=== PATIENT | female | born 1985 | race Caucasian/White ===

== ENCOUNTER 2021-01-17 13:51 | Emergency (ER) | payer BC ==
[2021-01-17 14:03] VITALS: BP 132/85
--- NOTE | 2021-01-17 14:06 | ED Physician Documentation ---
PD HPI WOUND RECHECK - Stated complaint Stated Complaint: RASH - Chief complaint Chief Complaint: Wound - Histroy obtained from History obtained from: Patient - Additional information Additional information: Has a small rash on the left buttock. It started yesterday. Feels like a burn but there was no activity or burn recollected. Review of Systems Constitutional: denies: Fever, Chills Nose: reports: Reviewed and negative Throat: reports: Reviewed and negative Cardiac: reports: Reviewed and negative Respiratory: reports: Reviewed and negative PD PAST MEDICAL HISTORY - Allergies Allergies/Adverse Reactions: Allergies Allergy/AdvReac Type Severity Reaction Status Date / Time Penicillins Allergy Hives Verified 01/17/21 13:59 Sulfa (Sulfonamide Allergy Anaphylaxis Verified 01/17/21 13:59 Antibiotics) PD ED PE NORMAL - Vitals Vital signs reviewed: Yes - General General: Alert and oriented X 3, No acute distress - Derm Derm: Other (She has a 1 cm denuded area on the left lower lateral buttock without cellulitis. It looks most like a abrasion or small burn. Deroofed bullous lesion is also possible but it is singular.) - Neuro Neuro: Alert and oriented X 3, Normal speech Results - Vitals Vitals: Vital Signs - 24 hr 01/17/21 13:59 Temperature 37.1 C Heart Rate 71 Respiratory 20 Rate Blood Pressure 132/85 H O2 Saturation 95 Oxygen O2 Source Room air PD MEDICAL DECISION MAKING - ED course ED course: Not sure what this lesion represents but it does not look dangerous. Does not look like shingles. Close watchful waiting and return for changes or worsening was advised. Departure - Departure Disposition: 01 Home, Self Care Clinical Impression: Rash and nonspecific skin eruption Condition: Good Record reviewed to determine appropriate education?: Yes Comments: As discussed, it looks most like an abrasion or small burn, but obviously there is no explanation for that. Do not think it is dangerous though, keep an eye on it if it worsens or he develop other new symptoms please return for reevaluation. In the meantime I think soap and water is fine and just a bandage with bacitracin ointment to keep it moist which is available [id number].
== END 2021-01-17 14:08 | disposition home or self-care (01) ==
LOC: ED 13:51
DX: R21 Rash and other nonspecific skin eruption (principal)
CPT/HCPCS: 99281; 99282

== ENCOUNTER 2022-12-26 20:56 | Emergency (ER) | payer BC ==
[2022-12-26 21:12] VITALS: BP 148/86
--- NOTE | 2022-12-26 22:21 | ED Physician Documentation ---
PD HPI HEADACHE - Stated complaint Stated Complaint: HEADACHES - Chief complaint Chief Complaint: Neuro - History obtained from History obtained from: Patient - Additional information Additional information: The patient comes to the emergency department with chief complaint of left temporal pains for the last 3 days. She states that she notices that they just come on randomly and that she will get them multiple times an hour. She states is a sharp pulse of pain that sometimes makes her wince. It only lasts for a second or 2 and then resolves. The patient states that there are no associated symptoms. No neurologic deficits of any kind. No nausea or vomiting. No dizziness. The patient denies any enduring pain in her adventism when she is not having the pulse pain. She has not had any visual changes. No fevers or chills. She has not been ill recently. This has never happened before. She states she is otherwise fairly healthy. The patient states she has come to the emergency department tonight because they called the nurse hotline to see what they should do, as Advil did not seem to be working, and the nurse told them to "get to the emergency department within an hour". Review of Systems Constitutional: reports: Reviewed and negative Eyes: reports: Reviewed and negative Ears: reports: Reviewed and negative Nose: reports: Reviewed and negative Throat: reports: Reviewed and negative Cardiac: reports: Reviewed and negative Respiratory: reports: Reviewed and negative GI: reports: Reviewed and negative : reports: Reviewed and negative Skin: reports: Reviewed and negative Musculoskeletal: reports: Reviewed and negative Neurologic: reports: Reviewed and negative Psychiatric: reports: Reviewed and negative Endocrine: reports: Reviewed and negative Immunocompromised: reports: Reviewed and negative PD PAST MEDICAL HISTORY - Past Surgical History Past Surgical History: No - Present Medications Home Medications: Ambulatory Orders Medication Instructions Recorded Confirmed No Known Home Medications 12/26/22 12/26/22 - Allergies Allergies/Adverse Reactions: Allergies Allergy/AdvReac Type Severity Reaction Status Date / Time Penicillins Allergy Hives Verified 12/26/22 21:11 Sulfa (Sulfonamide Allergy Anaphylaxis Verified 12/26/22 21:11 Antibiotics) - Social History Does the pt smoke?: No Smoking Status: Never smoker Does the pt drink ETOH?: No Does the pt have substance abuse?: No - Immunizations Immunizations are current?: Yes PD ED PE NORMAL - Vitals Vital signs reviewed: Yes - General General: Alert and oriented X 3, No acute distress, Well developed/nourished - HEENT HEENT: Atraumatic, PERRL, EOMI, Moist mucous membranes, Other (No L temporal artery firmness or tenderness.) - Neck Neck: Supple, no meningeal sign - Respiratory Respiratory: No respiratory distress - Derm Derm: Normal color, Warm and dry, No rash - Extremities Extremities: No deformity - Neuro Neuro: Alert and oriented X 3 - Psych Psych: Normal mood, Normal affect Results - Vitals Vitals: Vital Signs - 24 hr 12/26/22 21:06 Temperature 36.6 C Heart Rate 69 Respiratory 16 Rate Blood Pressure 148/86 H O2 Saturation 98 Oxygen O2 Source Room air PD Medical Decision Making - ED course Complexity details: considered differential, d/w patient, d/w family ED course: The patient was very well-appearing, and was describing a very focused, strong, intermittent sensation that was very localized. She did not have any other associated symptoms whatsoever, and was otherwise well. She had not had any trauma. I did not feel that the patient had an intracranial process going on but rather, seemed to have hyperactivity of one of the branches of her trigeminal nerve. This had been a fairly recent development and it was unclear whether this was something that would become chronic or blow over on its own. I discussed with the patient that I do not think CT scan will be helpful, normal blood work. I have offered the patient a short course of gabapentin and prednisone, but she would prefer to just wait and see how things go. I have discussed with her that she will need to follow-up with her primary care physician, should the symptoms continue for more than a week. We discussed that any neurologic symptoms develop, the patient should return to the emergency department immediately for reevaluation. Departure - Departure Disposition: 01 Home, Self Care Clinical Impression: Neuralgia and neuritis Condition: Stable Instructions: ED Cephalgia Unspecified Comments: Your symptoms are most consistent with nerve pain coming from one of the facial nerve branches that runs through your adventism. The highly focused pain that comes in pulses is indicative of a peripheral nerve source, meaning that it is not coming from the brain itself. In general, these sorts of nerve pains often blow over on their own, but if they do become chronic, there are various potential treatments you can discuss with your doctor. At this time, we have discussed prescription medication for symptom management, and you would like to hold off on this for now. Please follow-up with your primary doctor if your symptoms continue for more than the next week. Discharge Date/Time: 12/26/22 22:28
== END 2022-12-26 22:28 | disposition home or self-care (01) ==
LOC: ED 20:56
DX: M79.2 Neuralgia and neuritis, unspecified (principal)
CPT/HCPCS: 99281; 99283

== ENCOUNTER 2023-08-18 18:59 | Outpatient (CLI) | payer BC ==
--- NOTE | 2023-08-19 12:09 | Ultrasound Report ---
PROCEDURE: OB Detailed Eval INDICATIONS: SUPERVISION OF OUTSIDE/PRIOR DATING DATA: Last menstrual period (LMP): 03/05/2023. LMP-based estimated date of delivery (ENMANUEL): 12/10/2023. First dating scan (date and location): 05/04/2023. Estimated date of delivery (ENMANUEL) from first dating scan: 11/24/2023. The below data below was generated using the ultrasound ENMANUEL of 11/24/2023 TECHNIQUE: Real-time scanning was performed of the fetus, with image documentation and biometric measurements. Endovaginal scanning: Not performed. COMPARISON: None. FINDINGS: General: A single living intrauterine gestation is present. Presentation: Variable Placenta: Placental position is fundal, without previa. Amniotic fluid index: 16.9 cm, within normal limits for gestational age. Largest pocket 5.5 cm heart rate: 141 beats per minute. Maternal cervical canal: 4.4 cm long; normal length is 2.5 cm or more. biometrics: Biparietal diameter: 6.4 cm, 26 weeks 0 days Head circumference: 24.1 cm, 26 weeks 1 day Abdominal circumference: 22 cm, 26 weeks 3 days Femur length: 4.8 cm, 26 weeks 0 days Estimated gestational age from initial scan: 26 weeks 0 days Composite gestational age from present scan: 26 wakes 1 day Estimated weight and percentile: 909 g, 49th percentile. Measurement variability in biometric dating: +/- 10 days from 12-20 weeks gestation, +/- 2 weeks from 20-30 weeks gestation, +/- 3 weeks at 30 weeks gestation or later. Anatomic survey: Neuro: Ventricles are normal at less than 10 mm. Cisterna magna is normal at 3-11 mm. Cerebellum i s normal in size and morphology. The gestational age, somewhat suboptimally visualized. Nuchal skin fold: Normal at less than 6 mm between 14 and 20 weeks gestational age. Face: Nose and lips, facial profile are normal. Spine: No evidence for spina bifida. Heart: 4-chambered heart is present, with normal ventricular outflow tracts. Diaphragm: Diaphragm is intact. Stomach: Left-sided stomach is present. Kidneys: No hydronephrosis. Normal is less than 5 mm in 2nd trimester, less than 7 mm in 3rd trimester. Cord: 3 vessel cord has orthotopic insertion. Bladder: Normal in size. Extremities: All 4 extremities are visualized. Left hand is not identified. IMPRESSION: 1. Mars living intrauterine at 26 weeks 1 day based on today's ultrasound. Fetus is in the 49th percentile for weight. 2. Normal placenta and amniotic fluid. 3. Left hand is not identified due to lie. Neural structures are suboptimally visualized due to late gestational age. Grossly normal-appearing. Otherwise normal anatomic survey. No gross abn ormality. Reviewed by: Orlin Renee MD on 08/19/2023 12:08 PM PDT Approved by: Orlin Renee MD on 08/19/2023 12:08 PM PDT Station ID: [id number]
== END 2023-08-18 19:00 | disposition home or self-care (01) ==
LOC: DI 18:59
PROVIDERS: ATTEND Nurse Practitioner
DX: Z36.89 Encounter for other specified antenatal screening (principal); O09.522 Supervision of elderly multigravida, second trimester; Z3A.26 26 weeks gestation of pregnancy

== ENCOUNTER 2023-09-07 09:25 | Outpatient (CLI) | payer BC ==
[2023-09-07 10:35] LABS: HCT - HEMATOCRIT 33.8 % (37.0-47.0); HGB - HEMOGLOBIN 11.3 g/dL (12.0-16.0); MEAN CORPUSCULAR HEMOGLOBIN 29.7 pg (27.0-31.0); MEAN CORPUSCULAR HGB CONC 33.4 g/dL (32.0-36.0); MEAN CORPUSCULAR VOLUME 88.9 fL (81.0-99.0); MEAN PLATELET VOLUME 11.1 fL (7.9-10.8); RED BLOOD COUNT 3.8 10^6/uL (4.20-5.40); RED CELL DISTRIBUTION WIDTH 13.8 % (12.0-15.0); WHITE BLOOD COUNT 8.7 x10^3/uL (4.8-10.8)
[2023-09-07 10:55] LABS: CREATININE 0.6 mg/dL (0.6-1.3)
[2023-09-07 11:05] LABS: THYROID STIMULATING HORMONE 1.61 uIU/mL (0.34-5.60)
== END 2023-09-07 09:26 | disposition home or self-care (01) ==
LOC: LAB 09:25
PROVIDERS: ATTEND Nurse Practitioner
DX: O09.529 Supervision of elderly multigravida, unspecified trimester (principal); Z36.89 Encounter for other specified antenatal screening
CPT/HCPCS: 36415; 82565; 82950; 84443; 84450; 85027; 86787; 86850

== ENCOUNTER 2023-10-19 16:26 | Outpatient (CLI) | payer BC ==
--- NOTE | 2023-10-20 09:06 | Ultrasound Report ---
PROCEDURE: OB F/U or Repeat INDICATIONS: SUPERVISION OF OUTSIDE/PRIOR DATING DATA: Last menstrual period (LMP): 03/05/2023. LMP-based estimated date of delivery (ENMANUEL): 12/10/2023. First dating scan (date and location): 05/04/2023. Estimated date of delivery (ENMANUEL) from first dating scan: 11/24/2023. The below data below was generated using the ultrasound ENMANUEL of 11/24/2023 TECHNIQUE: Real-time scanning was performed of the fetus, with image documentation and biometric measurements. Endovaginal scanning: Not performed. COMPARISON: OB ultrasound 08/18/2023 FINDINGS: General: A single living intrauterine gestation is present. Presentation: Vertex Placenta: Placental position is fundal, without previa. Amniotic fluid index: 23.7 cm, upper limits of normal for gestational age. heart rate: 126 beats per minute. Maternal cervical canal: 5.3 cm long; normal length is 2.5 cm or more. biometrics: Biparietal diameter: 9.1 cm, 36 weeks 5 days, 93% Head circumference: 34.1 cm, 39 weeks 2 days, 98% Abdominal circumference: 32.6 cm, 36 weeks 4 days, 93% Femur length: 6.8 cm, 35 weeks 1 day, 50% Estimated gestational age from initial scan: 34 weeks 6 days Composite gestational age from present scan: 37 weeks 0 days Estimated weight and percentile: 2957 g, 89th percentile Measurement variability in biometric dating: +/- 10 days from 12-20 weeks gestation, +/- 2 weeks from 20-30 weeks gestation, +/- 3 weeks at 30 weeks gestation or more. Other: Left hand is within normal limits.. IMPRESSION: 1.Single live intrauterine consistent with 37 weeks and 0 days. 2.Amniotic fluid index at 23.7 cm, upper limits of normal. Recommend follow-up ultrasound. 3.Estimated weight is at the 89th percentile. Reviewed by: Jet Dominguez MD on 10/20/2023 9:05 AM PST Approved by: Jet Dominguez MD on 10/20/2023 9:05 AM PST Station ID: [id number]
== END 2023-10-19 16:27 | disposition home or self-care (01) ==
LOC: DI 16:26
PROVIDERS: ATTEND Obstetrics & Gynecology
DX: O09.523 Supervision of elderly multigravida, third trimester (principal); Z3A.37 37 weeks gestation of pregnancy

== ENCOUNTER 2023-10-26 08:00 | Outpatient (CLI) | payer BC | END 2023-10-26 23:59 | disposition home or self-care (01) | LOC: LAB.WC 08:00 | PROVIDERS: ATTEND Obstetrics & Gynecology | DX: Z36.85 Encounter for antenatal screening for Streptococcus B (principal) | CPT/HCPCS: 87797 ==

== ENCOUNTER 2023-11-04 15:00 | Inpatient (IN) | payer BC ==
[2023-11-04 15:45] LABS: RUPTURE OF MEMBRANES PLUS NEGATIVE (NEGATIVE)
--- NOTE | 2023-11-04 16:36 | PROVIDER PROGRESS NOTE ---
- HPI Chief Complaint: Labor Check Current : Current EDU 11/24/23 Gestation 37 Weeks and 1 Days 5 Para 3 Vital Signs Temperature 98.2 F 11/04/23 15:22 Heart Rate 69 11/04/23 15:22 Respiratory Rate 14 11/04/23 15:22 Blood Pressure 125/74 11/04/23 15:22 Temperature 98.2 F 11/04/23 15:22 Heart Rate 69 11/04/23 15:22 Respiratory Rate 14 11/04/23 15:22 Blood Pressure 125/74 11/04/23 15:22 O2 Saturation If not protocol: Oxygen Flow, liters/minute - Exam VSS NAD Conjunctiva pink, pale sclera +S1, S2, CTAB, no increased work of breathing Abd soft, NT, ND, visibly gravid at term, leopolds 6#8 Andrews: cephalic, head not engaged, some tenderness at incision site EFM: 130mod kathryn + A cells no D cells, reactive [place]: Q4-5 Cx: FT/50/hi/ant/soft. Ext: neg CCE - Procedures OB Procedure Performed: NST Diagnosis/Indication for NST: Other (early labor in setting of prior C/S.) NST Procedure: NST Procedure Start Date 11/04/23 Start Time 15:11 Stop Time 15:41 Vibroacoustic Stimulation Used No Patient States Movement Yes 130 mod kathryn + A cells no D cells, reactive Service Date of procedure: 11/04/23 Procedure Details: 130 mod kathryn + A cells no D cells reactive - Plan Plan: ANL: O+/abneg/RI/RPRNR/HepBneg/HIVneg/GCCTnegneg/GBSneg ANC c/b: C/S X3 - FOR RCS hemorrhage & blood transfusion with first - CARE WITH POST Hx of depression, current depression/anxiety - her plan is: if it gets really bad to ask for an SSRI. Her 3 kids (12, 11, 8) and FOB plan to be helpful . She is permanent here, though is [id number] so does have some friends who rotate around. AMA - FAS normal at 26 wk at . repeat scan ordered for growthat 32 weeks - doing 6 oct @ 4:30- 89th%ile bmi 33 - labs normal Pre- Weight: 185 - per pt. PMH: denies PSH: denies POB: 3 prior C/S PGYN: no h/o abnormal pap no h/o STDs no h/o problems with ovaries or uterus pt with regular monthly periods, when not Meds: PNV, tylenol sometimes All: PCS & Sulfa Soc: neg x3, lives with FOB TELMA and 3 kids Plan: 38yo @ 37&1 possibly in early labor possibly dehydrated from vomitting x1 today, not eating or drinking anything all day possible UTI ROM testing was negative does not appear to have ruptured her membraines does report pain at incision site intermittent will IV hydrate and see if that resolves CTX also checking for UTI re-checking cx in 2h if all symptoms resolve and contractions are resolved with IV hydration, will D/C home with precautions. if symptoms persist we will move to C/S treat UTI if present.
[2023-11-04] MEDS ORDERED: LACTATED RINGERS 1,000 ML IV ONE ×2 (16:51→22:39)
[2023-11-04] MEDS ORDERED: GENTAMICIN 320 MG in SODIUM CHLORIDE 0.9% 100ML 100 ML IV ONE (18:35)
[2023-11-04] MEDS ORDERED: ACETAMINOPHEN 500 MG TABLET PO ONE (18:35)
[2023-11-04] MEDS ORDERED: CITRIC ACID/SODIUM CITRATE 15 ML UDC PO ONE (18:35)
[2023-11-04] MEDS ORDERED: CLINDAMYCIN 900 MG/50 ML 900 MG/50 ML BAG IV ONE (18:35)
[2023-11-04] MEDS ORDERED: LACTATED RINGERS 1,000 ML ONE (18:38)
[2023-11-04 18:43] LABS: BASOPHILS % (AUTO) 0.2 %; EOSINOPHILS # (AUTO) 0.1 10^3/uL (0.0-0.7); EOSINOPHILS % (AUTO) 0.7 %; HCT - HEMATOCRIT 38.8 % (37.0-47.0); HGB - HEMOGLOBIN 12.8 g/dL (12.0-16.0); LYMPHOCYTES # (AUTO) 1.8 10^3/uL (1.5-3.5); LYMPHOCYTES % (AUTO) 18.8 %; MEAN CORPUSCULAR HEMOGLOBIN 28.8 pg (27.0-31.0); MEAN CORPUSCULAR VOLUME 87.4 fL (81.0-99.0); MEAN PLATELET VOLUME 12.1 fL (7.9-10.8); MONOCYTES # (AUTO) 0.5 10^3/uL (0.0-1.0); MONOCYTES % (AUTO) 4.8 %; NEUTROPHILS # (AUTO) 7.3 10^3/uL (1.5-6.6); NEUTROPHILS % (AUTO) 75.2 %; PLT - PLATELET COUNT 231 10^3/uL (130-450); RED BLOOD COUNT 4.44 10^6/uL (4.20-5.40); RED CELL DISTRIBUTION WIDTH 14.6 % (12.0-15.0); WHITE BLOOD COUNT 9.7 x10^3/uL (4.8-10.8)
--- NOTE | 2023-11-04 18:54 | HISTORY & PHYSICAL EXAMINATION ---
Admit History - Visit Reason Visit Reason: Contractions - : 5 Parity: 3 Premature: 0 Ectopic: 0 : 1 Care: positive: [facility] Risk/History: positive: Previous Complications This : positive: None Smoking Status: Never smoker - Mother's Labs Mother's Blood Type: positive: O Mother's RH: positive: Positive GBS: positive: Group B Step Negative Rubella Status: positive: Immune - Other Maternal History Other Maternal History: ANL: O+/abneg/RI/RPRNR/HepBneg/HIVneg/GCCTnegneg/GBSneg ANC c/b: C/S X3 - FOR RCS hemorrhage & blood transfusion with first - CARE WITH POST Hx of depression, current depression/anxiety - her plan is: if it gets really bad to ask for an SSRI. Her 3 kids (12, 11, 8) and FOB plan to be helpful . She is permanent here, though is [id number] so does have some friends who rotate around. AMA - FAS normal at 26 wk at . repeat scan ordered for growthat 32 weeks - doing 6 oct @ 4:30- 89th%ile bmi 33 - labs normal Pre- Weight: 185 - per pt. PMH: denies PSH: denies POB: 3 prior C/S PGYN: no h/o abnormal pap no h/o STDs no h/o problems with ovaries or uterus pt with regular monthly periods, when not Meds: PNV, tylenol sometimes All: PCS & Sulfa Soc: neg x3, lives with FOB TELMA and 3 kids Plan: 38yo @ 37&1 possibly in early labor Ctx did not improve after IV hydration, indeed they palpate more strongly ROM testing was negative does not appear to have ruptured her membraines does report pain at incision site intermittent FWB: Cat 1, cEFM Will proceed to OR for early labor in setting of 3 prior C/S at term RBA discussed informed consent obtained she is PCN / sulfa allergic -- will prophy with gent and clinda proceed to OR when available. anticipate 1-2h as pt x2 are stable and there is a gen surg emergency case right now. - HPI Current EDU 11/24/23 Gestation 37 Weeks and 1 Days 5 Para 3 Vital Signs Temperature 98.2 F 12/22/23 15:22 Heart Rate 69 11/04/23 15:22 Respiratory Rate 14 11/04/23 15:22 Blood Pressure 125/74 11/04/23 15:22 Temperature 98.1 F 11/04/23 17:13 Heart Rate 75 11/04/23 17:13 Respiratory Rate 18 11/04/23 17:13 Blood Pressure 124/77 11/04/23 17:13 O2 Saturation 97 11/04/23 17:13 If not protocol: Oxygen Flow, liters/minute - NST Procedure NST Procedure Start Date 11/04/23 Start Time 15:11 Stop Time 15:41 Vibroacoustic Stimulation Used No Patient States Movement Yes Meds/Allgy - Home Medications Home Medications: Ambulatory Orders Medication Instructions Recorded Confirmed No Known Home Medications 12/26/22 12/26/22 - Allergies Allergies/Adverse Reactions: Allergies Allergy/AdvReac Type Severity Reaction Status Date / Time Penicillins Allergy Hives Verified 12/26/22 21:11 Sulfa (Sulfonamide Allergy Anaphylaxis Verified 12/26/22 21:11 Antibiotics) Review of Systems - Other Findings Other Findings: Denies: F/C/N/V/CP/SOB Denies: dizziness, weakness, lightheadedness, difficulty with ambulation, palpitations Denies: SUN / visual changes Physical - Abdominal Exam Vital Signs: Temp Pulse Resp BP Pulse Ox O2 Flow Rate 98.1 F 75 18 124/77 97 11/04/23 17:13 11/04/23 17:13 11/04/23 17:13 11/04/23 17:13 11/04/23 17:13 Contraction Frequency (min/apart): 5 Contraction Intensity: positive: Moderate Uterine Resting Tone: positive: Soft - Monitoring Heart Rate Baseline: 130 Strip Review: positive: Category I - Presentation Presentation: positive: Vertex - Vaginal Exam Membranes: positive: Membranes intact Dilation (in cm): 1 Effacement (%): 50 Station: positive: -3 Cervical Position: positive: Anterior - Speculum Exam Speculum Exam Performed: positive: No Plan for Labor - Plan For Labor I expect patient to be DC'd or transferred within 96 hours.: No Plan for Labor: Admit, proceed to OR see plan noted earlier in this note.
[2023-11-04] MEDS: LACTATED RINGERS 1,000 ML IV SCH (18:56)
[2023-11-04 19:56] LABS: BILIRUBIN,URINE NEGATIVE (NEGATIVE); GLUCOSE, URINE (UA) NEGATIVE (NEGATIVE); KETONES,URINE (UA) >=80 mg/dL (NEGATIVE); LEUKOCYTE ESTERASE, URINE NEGATIVE (NEGATIVE); NITRITE,URINE NEGATIVE (NEGATIVE); OCCULT BLOOD,URINE NEGATIVE (NEGATIVE); PROTEIN,URINE NEGATIVE (NEGATIVE); UROBILINOGEN,URINE 0.2 (NORMAL) E.U./dL (NORMAL)
[2023-11-04 20:04] LABS: CLARITY,URINE CLEAR (CLEAR)
[2023-11-04] MEDS ORDERED: OXYTOCIN/SODIUM CHLORIDE 500 ML IV ONE (20:23)
[2023-11-04] MEDS ORDERED: fentaNYL 100 MCG/2 ML VIAL ONE (20:23)
[2023-11-04] MEDS ORDERED: MORPHINE PF 5 MG/10 ML VIAL ONE (20:23)
[2023-11-04] MEDS ORDERED: PHENYLEPHRINE HCL 0.5 MG/5 ML AMPULE ONE ×2 (20:25→21:35)
[2023-11-04] MEDS ORDERED: HYDROmorphone 0.5 MG/0.5 ML SYRINGE IVP PRN (20:33)
[2023-11-04] MEDS ORDERED: fentaNYL 100 MCG/2 ML VIAL IVP PRN (20:33)
[2023-11-04] MEDS ORDERED: ONDANSETRON 4 MG/2 ML VIAL IVP PRN ×2 (20:33→22:42)
[2023-11-04] MEDS ORDERED: ATROPINE ABBOJECT 1 MG/10 ML SYRINGE IVP PRN (20:33)
[2023-11-04] MEDS ORDERED: MORPHINE 2 MG/ML CARPUJECT IVP PRN (20:33)
[2023-11-04] MEDS ORDERED: NALOXONE 0.4 MG/ML VIAL IVP PRN ×3 (20:33→22:42)
--- NOTE | 2023-11-04 20:33 | ANESTHESIA ---
Pre-Anesthesia VS, & Labs - Diagnosis Early labor, previous c/s - Procedure repeat c/s Vital Signs: Temp Pulse Resp BP Pulse Ox O2 Flow Rate 36.8 C 74 16 129/82 H 97 11/04/23 19:36 11/04/23 19:36 11/04/23 19:36 11/04/23 19:36 11/04/23 17:13 Height: 5 ft 1 in Weight (kg): 88.451 kg Body Mass Index: 36.8 BMI Classification: Obese - NPO >8 hours - Is Patient ?: Yes - Lab Results Current Lab Results: Laboratory Tests 11/04/23 19:52: Blood Type Recheck O POSITIVE 11/04/23 18:54: Blood Type O POSITIVE, Antibody Screen NEGATIVE 11/04/23 16:45: WBC 9.7, RBC 4.44, Hgb 12.8, Hct 38.8, MCV 87.4, MCH 28.8, MCHC 33.0, RDW 14.6, Plt Count 231, MPV 12.1 H, Neut # (Auto) 7.3 H, Lymph # (Auto) 1.8, Eaton # (Auto) 0.5, Eos # (Auto) 0.1, Baso # (Auto) 0.0, Absolute Nucleated RBC 0.00, Nucleated RBC % 0.0 Lab results reviewed: Yes Fish Bones: 11/04/23 16:45 Home Medications and Allergies Active Medications Lactated Ringer's (Lr) 1,000 mls @ 125 mls/hr IV .Q8H RALPH Last Admin: 11/04/23 18:56 Dose: 125 mls/hr No Known Home Medications 12/26/22 Allergies/Adverse Reactions: Allergies Allergy/AdvReac Type Severity Reaction Status Date / Time Penicillins Allergy Hives Verified 12/26/22 21:11 Sulfa (Sulfonamide Allergy Anaphylaxis Verified 12/26/22 21:11 Antibiotics) Anes History & Medical History - Anesthetic History Anesthesia Complications: reports: No previous complications - Medical History Cardiovascular: reports: None Pulmonary: reports: None Gastrointestinal: reports: None Urinary: reports: None Neuro: reports: None Musculoskeletal: reports: None Endocrine/Autoimmune: reports: None Blood Disorders: reports: None Skin: reports: None Smoking Status: Never smoker Psychosocial: reports: No issues indicated History of Cancer?: No - Surgical History General: reports: Appendectomy - Obstetrical History : 5 Parity: 3 Events: reports: Previous Complications: reports: None Exam General: Alert, Oriented x3, Cooperative, No acute distress Dental: WNL Mouth Openin Fingerbreadth Neck Mobility: Normal Mallampati classification: II Thyromental Distance: 4-6 cm Mental/Cognitive Status: Alert/Oriented X3, Normal for patient Plan Anesthesia Type: Spinal (with ITN) Consent for Procedure(s) Verified and Reviewed: Yes Code Status: Attempt Resuscitation ASA classification: 2-Mild systemic disease Is this case an emergency?: No
[2023-11-04] MEDS ORDERED: MORPHINE PF 5 MG/10 ML VIAL IT ONE (20:56)
[2023-11-04] MEDS ORDERED: fentaNYL 100 MCG/2 ML VIAL IT ONE (20:56)
[2023-11-04] MEDS ORDERED: LACTATED RINGERS 1,000 ML IV SCH ×2 (21:00→23:00)
[2023-11-04] MEDS ORDERED: ONDANSETRON 4 MG/2 ML VIAL ONE (21:26)
[2023-11-04] MEDS ORDERED: METHYLERGONOVINE 0.2 MG/ML VIAL ONE (21:35)
[2023-11-04] MEDS ORDERED: miSOPROStoL 200 MCG TABLET ONE (21:35)
[2023-11-04] MEDS ORDERED: CARBOPROST TROMETHAMINE 250 MCG/ML AMP IM ONE (21:35)
[2023-11-04] MEDS ORDERED: KETOROLAC 30 MG/ML VIAL ONE (21:59)
[2023-11-04] MEDS ORDERED: LABETALOL 20 MG/4 ML SYRINGE IVP PRN ×3 (22:31)
[2023-11-04] MEDS ORDERED: OXYTOCIN/SODIUM CHLORIDE 500 ML IV PRN (22:31)
[2023-11-04] MEDS ORDERED: hydrALAZINE INJ 20 MG/ML VIAL IVP PRN ×2 (22:31)
[2023-11-04] MEDS ORDERED: CARBOPROST TROMETHAMINE 250 MCG/ML AMP IM PRN (22:31)
[2023-11-04] MEDS ORDERED: METHYLERGONOVINE 0.2 MG/ML VIAL IM PRN (22:31)
[2023-11-04] MEDS ORDERED: TRANEXAMIC ACID IN NACL 1,000 MG/100 ML BAG IV PRN (22:31)
[2023-11-04] MEDS ORDERED: NIFEdipine 10 MG CAPSULE PO PRN (22:31)
[2023-11-04] MEDS ORDERED: CALCIUM CARBONATE CHEW 500 MG TABLET PO PRN (22:31)
[2023-11-04] MEDS ORDERED: diphenhydrAMINE INJ 50 MG/ML VIAL IVP PRN (22:42)
[2023-11-04] MEDS ORDERED: NALBUPHINE 10 MG/ML AMP IVP PRN (22:42)
--- NOTE | 2023-11-04 22:43 | OPERATIVE REPORT ---
Operative Report - General Admit Date: 11/04/23 - Other Other Information/Narrative: OPERATIVE NOTE Pre-operative diagnosis: 1. IUP @ 37&1 2. labor 3. h/o C/S x3 Procedure: RLTCS via pfannensteil skin incision Post-operative diagnosis: CIRO Surgeon: Brittany Torch Brazer: Thiago Anesthesia: Spinal Findings: viable female , Apgars , born at 2131 normal uterus normal tubes & ovaries bilaterally no notable adhesions Complications: None apparent EBL: 600cc UOP: 50cc IVF: 1L Procedure in detail: After risks benefits and alternatives, as well as indication for procedure and anticipated post-operative recovery course, were discussed with the patient informed consent was obtained and patient was taken to the operating theater where spinal anesthesia was administered without difficulty. [place] catheter was inserted in normal sterile fashion. Pt was prepared and draped in normal sterile fashion. Anesthesia was tested and found to be adequate. Prior to skin incision pt received recommended antibiotics, surgical time out was performed, and all persons in the operating theater participated in time out and agreed. Pfannensteil skin incision made with scalpel. Carried down to level of fasia. Fascia incised and extended. Anterior aspect of rectus sheath dissected off of rectus muscle without difficulty. Peritoneum entered without difficulty and surgical field extended with gentle lateral traction. Lower uterine segment identified, well developed. Uterine incision made with scalpel, uterus entered bluntly and incision extended bluntly. Surgeons right hand entered into lower uterine segment, presenting part elevated to level of incision and delivered atraumatically. Cord clamped and cut x2, did not delay cord clamp 2'2 needing to hand baby to box maker wood. baby handed to awaiting box maker wood, apgars as noted above. Placenta delivered manually. Uterus exteriorized and wrapped in moist lap. Uterine cavity cleaned with moist lap and found to be free of membranes or debris. Uterine incision closed with 0 vicryl, running suture, and subsequently imbricated with the same suture. Incision inspected, hemostatic. Gutters cleaned. Uterus returned to abdominal cavity. All inspected, hemostatic. Peritoneum reapproximated without suture. Muscles inspected, fascia inspected, hemostatic. Fascia closed with 0 looped PDS in running fashion. Subcutaneous tissue irrigated, and then closed with 2.0 vicryl in running fashion. Skin incision closed with subcuticular sutures with 4.0 vicryl. Pt and tolerated procedure well. All counts correct. Pt to PACU in stable condition.
--- NOTE | 2023-11-04 22:51 | ANESTHESIA POST OP EVALUATION ---
Anesthesia Post Eval - Post Anesthesia Eval Vitals: Last Vital Signs Temp 36.9 C 11/04/23 22:34 Pulse 73 11/04/23 22:34 Resp 16 11/04/23 22:34 BP 106/64 11/04/23 22:34 Pulse Ox 97 11/04/23 22:34 O2 Flow Rate CV Function Including HR & BP: Stable Pain Control: Satisfactory Nausea & Vomiting: Negative Mental Status: Baseline Respiratory Status: Airway Patent Hydration Status: Satisfactory Anesthesia Complications: None
[2023-11-04] MEDS ORDERED: ACETAMINOPHEN 500 MG TABLET PO SCH (23:00)
[2023-11-05] MEDS: LACTATED RINGERS 1,000 ML IV SCH ×2 (01:57→10:04)
[2023-11-05] MEDS: KETOROLAC 30 MG/ML VIAL IVP SCH ×3 (04:04→16:35)
[2023-11-05 06:04] LABS: HCT - HEMATOCRIT 33.2 % (37.0-47.0); HGB - HEMOGLOBIN 11.2 g/dL (12.0-16.0); MEAN CORPUSCULAR HEMOGLOBIN 29.6 pg (27.0-31.0); MEAN CORPUSCULAR HGB CONC 33.7 g/dL (32.0-36.0); MEAN CORPUSCULAR VOLUME 87.8 fL (81.0-99.0); MEAN PLATELET VOLUME 11.3 fL (7.9-10.8); RED BLOOD COUNT 3.78 10^6/uL (4.20-5.40); RED CELL DISTRIBUTION WIDTH 14.5 % (12.0-15.0)
[2023-11-05] MEDS: DOCUSATE SODIUM 100 MG CAPSULE PO SCH ×2 (08:27→21:29)
[2023-11-05] MEDS: SIMETHICONE CHEW 80 MG TABLET PO PRN (08:28)
--- NOTE | 2023-11-05 10:55 | PROVIDER PROGRESS NOTE ---
Subjective - Prog Note Date Prog Note Date: 11/05/23 Prog Note Time: 10:55 - Subjective Pt reports feeling: Improved Subjective: Pt well, lochia appropriate, + amb, due to void, + jace PO, no flatus yet Feeding going well -- breast Bonding with baby Denies: F/C/N/V/CP/SOB Denies: dizziness, weakness, lightheadedness, difficulty with ambulation, palpitations Denies: SUN / visual changes Objective - Vital Signs/Intake & Output Vital Signs: Vital Signs x48h Temp Pulse Resp BP Pulse Ox 11/05/23 10:00 71 20 97 11/05/23 09:18 60 18 97 11/05/23 08:19 95/57 L 11/05/23 07:51 98.3 F 60 16 88/52 L 97 11/05/23 06:51 16 96 11/05/23 05:40 14 97 11/05/23 04:00 16 97 11/05/23 03:05 98 11/05/23 03:00 98.5 F 70 18 103/57 L 96 Intake & Output: Intake & Output 11/02/23 11/03/23 11/04/23 11/05/23 23:59 23:59 23:59 23:59 Intake Total 1108 4027.083 Output Total 1635 Balance 1108 2392.083 - Lab Results Fish Bones: 11/05/23 05:59 Other Labs: Lab Results x24hrs 11/05/23 11/04/23 11/04/23 Range/Units 05:59 19:52 18:54 WBC 10.0 (4.8-10.8) x10^3/uL RBC 3.78 L (4.20-5.40) 10^6/uL Hgb 11.2 L (12.0-16.0) g/dL Hct 33.2 L (37.0-47.0) % MCV 87.8 (81.0-99.0) fL MCH 29.6 (27.0-31.0) pg MCHC 33.7 (32.0-36.0) g/dL RDW 14.5 (12.0-15.0) % Plt Count 184 (130-450) 10^3/uL MPV 11.3 H (7.9-10.8) fL Neut # (Auto) (1.5-6.6) 10^3/uL Lymph # (Auto) (1.5-3.5) 10^3/uL [place] # (Auto) (0.0-1.0) 10^3/uL Eos # (Auto) (0.0-0.7) 10^3/uL Baso # (Auto) (0.0-0.1) 10^3/uL Absolute Nucleated RBC x10^3/uL Nucleated RBC % /100WBC Urine Color Urine Clarity (CLEAR) Urine pH (5.0-7.5) PH Ur Specific Luke (1.002-1.030) Urine Protein (NEGATIVE) mg/dL Urine Glucose (UA) (NEGATIVE) mg/dL Urine Ketones (NEGATIVE) mg/dL Urine Occult Blood (NEGATIVE) Urine Nitrite (NEGATIVE) Urine Bilirubin (NEGATIVE) Urine Urobilinogen (NORMAL) E.U./dL Ur Leukocyte Esterase (NEGATIVE) Membranes Rupture (NEGATIVE) Blood Type O POSITIVE Blood Type Recheck O POSITIVE Antibody Screen NEGATIVE 11/04/23 11/04/23 11/04/23 Range/Units 18:00 16:45 15:15 WBC 9.7 (4.8-10.8) x10^3/uL RBC 4.44 (4.20-5.40) 10^6/uL Hgb 12.8 (12.0-16.0) g/dL Hct 38.8 (37.0-47.0) % MCV 87.4 (81.0-99.0) fL MCH 28.8 (27.0-31.0) pg MCHC 33.0 (32.0-36.0) g/dL RDW 14.6 (12.0-15.0) % Plt Count 231 (130-450) 10^3/uL MPV 12.1 H (7.9-10.8) fL Neut # (Auto) 7.3 H (1.5-6.6) 10^3/uL Lymph # (Auto) 1.8 (1.5-3.5) 10^3/uL [place] # (Auto) 0.5 (0.0-1.0) 10^3/uL Eos # (Auto) 0.1 (0.0-0.7) 10^3/uL Baso # (Auto) 0.0 (0.0-0.1) 10^3/uL Absolute Nucleated RBC 0.00 x10^3/uL Nucleated RBC % 0.0 /100WBC Urine Color YELLOW Urine Clarity CLEAR (CLEAR) Urine pH 6.0 (5.0-7.5) PH Ur Specific Luke 1.025 (1.002-1.030) Urine Protein NEGATIVE (NEGATIVE) mg/dL Urine Glucose (UA) NEGATIVE (NEGATIVE) mg/dL Urine Ketones >=80 H (NEGATIVE) mg/dL Urine Occult Blood NEGATIVE (NEGATIVE) Urine Nitrite NEGATIVE (NEGATIVE) Urine Bilirubin NEGATIVE (NEGATIVE) Urine Urobilinogen 0.2 (NORMAL) (NORMAL) E.U./dL Ur Leukocyte Esterase NEGATIVE (NEGATIVE) Membranes Rupture NEGATIVE (NEGATIVE) Blood Type Blood Type Recheck Antibody Screen - Other Results/Comments Other Results/Comments: VSS NAD Conjunctiva pink, pale sclera +S1, S2, CTAB, no increased work of breathing Abd soft, NT, ND, uterus 1 below U INC dressed and dry Mood: good, happy, all girls in the room. Ext: neg CCE Assessment/Plan - Problem List (1) Previous section Impression: s/p RCS x4 (2) Delivery by section Impression: continue to advance due to void anticipate D/C home tomorrow evening will send D/C meds now -- as tomorrow is [facility] / tuesday & tuesday is [facility] / closed
[2023-11-05] MEDS: ACETAMINOPHEN 500 MG TABLET PO SCH ×2 (12:17→19:48)
[2023-11-05] MEDS: oxyCODONE 5 MG TABLET PO PRN ×2 (19:29→23:11)
[2023-11-05] MEDS: IBUPROFEN 600 MG TABLET PO SCH (23:05)
[2023-11-06] MEDS: ACETAMINOPHEN 500 MG TABLET PO SCH ×2 (03:21→11:18)
[2023-11-06] MEDS: oxyCODONE 5 MG TABLET PO PRN ×3 (03:21→16:08)
[2023-11-06 03:34] VITALS: O2SAT 97
[2023-11-06] MEDS: IBUPROFEN 600 MG TABLET PO SCH ×2 (06:22→13:07)
[2023-11-06] MEDS: SIMETHICONE CHEW 80 MG TABLET PO PRN (08:46)
[2023-11-06] MEDS: DOCUSATE SODIUM 100 MG CAPSULE PO SCH (08:46)
--- NOTE | 2023-11-06 11:51 | DISCHARGE SUMMARY ---
"Discharge Summary Admit Date: 11/04/23 Discharge Date: 11/06/23 Discharging Provider: cathi Primary Care Provider: cathi Code Status: Attempt Resuscitation Condition at Discharge: Good Discharge Disposition: 01 Home, Self Care - DIAGNOSES Admission Diagnoses: labor, prior C/S x3 IUP at term Discharge Diagnoses with Status of Each Condition: labor - resolved by [facility] x4 anxiety / depression - stable today, has follow up on tuesday, and well connected with [place] provider here. post- op, all milestones met, ready to D/C home. - HPI History of Present Illness: Pt well, lochia appropriate, + amb, + void, + jace PO, + flatus Feeding going well -- breast Bonding with baby Denies: F/C/N/V/CP/SOB Denies: dizziness, weakness, lightheadedness, difficulty with ambulation, palp itations Denies: SUN / visual changes reports ready to go home. VSS NAD Conjunctiva pink, pale sclera +S1, S2, CTAB, no increased work of breathing Abd soft, NT, ND, [place] 2 below U INC CDI, stitches, two small bruises - discussed Ext: neg CCE - CONSULTS | PROCEDURES Procedures: [facility] post care care - HOSPITAL COURSE Hospital Course: pt presented at 38+ in early labor for r/o ROM did not have ROM, though ctx increased in frequency and intensity proceeded to [facility] for details see operative course, uncomplicated post op she and baby did well breastfed met milestones and D/C home POD#2 without complication. - ALLERGIES Allergies/Adverse Reactions: Allergies Allergy/AdvReac Type Severity Reaction Status Date / Time Penicillins Allergy Hives Verified 12/26/22 21:11 Sulfa (Sulfonamide Allergy Anaphylaxis Verified 12/26/22 21:11 Antibiotics) - MEDICATIONS Home Medications: Ambulatory Orders Medication Instructions Recorded Confirmed oxyCODONE [Roxicodone] 5 mg PO Q4H PRN #12 tablet 11/05/23 Oxycodone HCl/Acetaminophen 1 each PO PRN PRN 3 Days #12 11/06/23 [Percocet 5-325 mg Tablet] tablet MDD 6 - LABS Result Diagrams: 11/05/23 05:59 - QUALITY (Female Hip Fx Only) Was patient sent home on osteoporosis medication?: No - TIME SPENT Time Spent in Discharge (Minutes): 30"
--- NOTE | 2023-11-06 12:04 | Discharge Plan ---
Discharge Plan Problem Reviewed?: Yes Disposition: Home, Self Care Condition: Good Prescriptions: Oxycodone HCl/Acetaminophen [Percocet 5-325 mg Tablet] 1 each PO PRN PRN 3 Days #12 tablet MDD 6 PRN Reason: Abdominal Pain oxyCODONE [Roxicodone] 5 mg PO Q4H PRN #12 tablet PRN Reason: Severe Pain Diet: Regular Activity Restrictions: No Restrictions Shower Restrictions: No Driving Restrictions: Yes (do not drive when on narcotic pain medication.) Weight Bearing: Full Weight Instruction Topics: , Depression , Childbirth Breast Care Health Concerns: anxiety / depression mental health concerns as well as routine post op / post , and . Plan of Treatment: routine post / post op / as well as tuesday mental health & incision check with OB mental health checks with peds and f/u with mental health clinician. Assessment: all milestones met ready to d/c home has supportive home and connections for mental health care No Smoking: If you smoke, Please STOP! Call for help. Follow-up with: Jack Davis MD [Provider Admit Priv/Credential] -
[2023-11-06 13:17] VITALS: BP 97/54
--- NOTE | 2023-11-06 17:22 | Labor Flowsheet ---
Labor Flowsheet Datetime Report Generated by CPN: 11/06/2023 17:22 Datetime: 11/04/2023 20:39 UTERINE ACTIVITY Monitor Mode: External Frequency (min): 6-8.5 Quality: Moderate Duration (sec): 60-80 Pattern: Normal: <= 5 Contractions in 10 Minutes Resting Tone (Palpate): Relaxed ASSESSMENT A Monitor Mode: External US FHR Baseline Rate : 130 Variability: Moderate 6-25 bpm Accelerations: 15X15 Decelerations: None Category: Category I Comments: 2038 EFM off to go to OR Datetime: 11/04/2023 20:00 Monitor Interventions for FHR: Ultrasound Adjusted Datetime: 11/04/2023 19:57 PATIENT CARE I/O Interventions: Up to BR Datetime: 11/04/2023 19:14 Patient Care Comments: pt moved to room 2105 and put on flying station-does not communicate with ce ntral monitoring Datetime: 11/04/2023 17:14 Pulse: 67 SpO2 (%): 97 Datetime: 11/04/2023 17:13 VITAL SIGNS NBP Sys/Kiersten/Mean (mmHg): 124 : 77 : 85
== END 2023-11-06 16:00 | disposition home or self-care (01) | DRG 788 ==
LOC: WFO 15:00 → FBP 15:10 → WFO 18:34 → FBP 18:35
PROVIDERS: ADMIT Obstetrics & Gynecology; ATTEND Obstetrics & Gynecology
PROC: 10D00Z1 Extraction of Products of Conception, Low, Open Approach (ICD-10-PCS; principal; 2023-11-04 20:45)
DX: O34.219 Maternal care for unspecified type scar from previous cesarean delivery (principal); N85.8 Other specified noninflammatory disorders of uterus; Z3A.37 37 weeks gestation of pregnancy; Z37.0 Single live birth; O99.344 Other mental disorders complicating childbirth; F41.9 Anxiety disorder, unspecified; F32.A Depression, unspecified; Z87.59 Personal history of other complications of pregnancy, childbirth and the puerperium; Z88.0 Allergy status to penicillin; Z88.2 Allergy status to sulfonamides; O99.214 Obesity complicating childbirth
CPT/HCPCS: 36415; 59025; 81003; 84112; 85025; 85027; 86850; 86900; 86901; 87086; 96360; 96361; 99215; A9270; J1580; J2274; J2372; J7120

== ENCOUNTER 2024-04-03 08:47 | Emergency (ER) | payer BC ==
[2024-04-03 09:24] VITALS: BP 123/89; O2SAT 100
--- NOTE | 2024-04-03 10:22 | ED Physician Documentation ---
PD HPI LOWER EXT INJURY - Stated complaint Stated Complaint: RT FOOT GLASS - Chief complaint Chief Complaint: Trauma Ext - History obtained from History obtained from: Patient - History of Present Illness PD HPI LOW EXT INJURY LOCATION: Right, Foot Type of injury: Foreign body (she dropped a pickle jar a week ago that had small pieces of broken glass on the floor. She accidentally stepped on small piece. Not feeling pain really at the time but has had tenderness/pain develop in the area the past couple of days. No drainage.) Where injury occurred: Home Timing - onset: How many weeks ago (1) Timing - duration: Weeks (1) Timing - details: Gradual onset, Still present (is actually more tender the past couple of days.) Worsened by: Palpating, Other (walking on area is tender.) Associated symptoms: No: Weakness, Numbness Review of Systems Skin: denies: Rash Neurologic: denies: Focal weakness, Numbness PD PAST MEDICAL HISTORY - Past Medical History Cardiovascular: None Respiratory: None Neuro: None Endocrine/Autoimmune: None GI: None : None Musculoskeletal: None Derm: None - Past Surgical History Past Surgical History: No General: Appendectomy - Present Medications Home Medications: Ambulatory Orders Medication Instructions Recorded Confirmed oxyCODONE [Roxicodone] 5 mg PO Q4H PRN #12 tablet 11/05/23 Oxycodone HCl/Acetaminophen 1 each PO PRN PRN 3 Days #12 11/06/23 [Percocet 5-325 mg Tablet] tablet MDD 6 - Allergies Allergies/Adverse Reactions: Allergies Allergy/AdvReac Type Severity Reaction Status Date / Time Penicillins Allergy Hives Verified 04/03/24 09:09 Sulfa (Sulfonamide Allergy Anaphylaxis Verified 04/03/24 09:09 Antibiotics) - Social History Does the pt smoke?: No Smoking Status: Never smoker Does the pt drink ETOH?: No Does the pt have substance abuse?: No - Immunizations Immunizations are current?: Yes PD ED PE NORMAL - Vitals Vital signs reviewed: Yes - General General: Alert and oriented X 3, No acute distress, Well developed/nourished - Derm Derm: Normal color, Warm and dry - Extremities Extremities: Other (Right foot plantar aspect over the area of the second metatarsal head with localized area thickening of the skin consistent with a callus perhaps. Small puncture type appearance just of pinpoint type size noted. No obvious foreign body palpable at the skin per se. No redness or swelling. Tender.) - Neuro Neuro: No motor deficit, No sensory deficit Results - Vitals Vitals: Vital Signs - 24 hr 04/03/24 09:05 Temperature 36.3 C L Heart Rate 52 L Respiratory 18 Rate Blood Pressure 123/89 H O2 Saturation 100 Oxygen O2 Source Room air - Rads (name of study) foot xray Relevant Findings:: Prelim report reviewed, EMP independent interpretation of test Procedures - FB removal FB location: Subcutaneous FB removal preparation: Local anesthesia-specify Removal method: Foreceps FB removal aftercare: Patient tolerated well, Removed successfully (I did find a small shard of glass under the skin with probing. I don't know if there is more than one, as not visible on xray. Will see how it feels once healed.) PD Medical Decision Making - ED course Complexity details: reviewed results (no FB noted. ), considered differential, d/w patient Departure - Departure Disposition: 01 Home, Self Care Clinical Impression: Acute foreign body of plantar aspect of foot Condition: Stable Record reviewed to determine appropriate education?: Yes Instructions: ED Foreign Body Soft Tissue Removed Follow-Up: Philip Oconnor, DPM [Physician No Access] - Comments: I believe I got the small glass foreign body out from the foot. It was a small little shard and I did not feel any further ones in there. The foot will be sore now with the incision but that should improve over a few days. You could follow-up with podiatry if there is still a feeling of a foreign body in there after this is healing. There were no glass pieces seen on x-ray so that was not helpful to delineate if there was more than 1. Is not unusual for small pieces did not show up well. Hopefully this is all well and done. Recheck if signs of infection. Suture removal in about a week. Forms: PCP List Discharge Date/Time: 04/03/24 12:12
[2024-04-03] MEDS: LIDOCAINE-EPINEPH-TETRACAINE 3 ML SYRINGE TOP STA (10:36)
--- NOTE | 2024-04-03 10:40 | XRAY Report ---
PROCEDURE: Foot 3+V RT INDICATIONS: glass FB suspected great toe base TECHNIQUE: 3 views of the foot were acquired. COMPARISON: None. FINDINGS: Bones: No fractures or dislocations. No suspicious bony lesions. Soft tissues: No tibiotalar joint effusion. Achilles tendon appears normal. No radiopaque foreign body. IMPRESSION: No acute bony abnormality. No radiopaque foreign body. Reviewed by: Tien Calderon MD on 04/03/2024 10:39 AM PDT Approved by: Tien Calderon MD on 04/03/2024 10:39 AM PDT Station ID: [id number]
== END 2024-04-03 12:12 | disposition home or self-care (01) ==
LOC: ED 08:47
DX: S91.341A Puncture wound with foreign body, right foot, initial encounter (principal); W25.XXXA Contact with sharp glass, initial encounter; W45.8XXA Other foreign body or object entering through skin, initial encounter
CPT/HCPCS: 99283